=== PATIENT | female | born 2000 | race Caucasian/White ===

== ENCOUNTER 2020-12-08 19:39 | Emergency (ER) | payer OTHER ==
[2020-12-08 20:29] LABS: BASOPHIL 0.1 % (0-2); EOSINOPHIL 0 % (0-5); HGB 12.6 g/dl (12.5-16.0); MCH 28.6 pg (25.0-31.0); MCHC 34.1 g/dL (32.0-36.0); MCV 84.1 fL (78.0-100.0); MONOCYTE 13.2 % (0-12); MPV 9.7 fL (6.0-9.5); NEUTROPHIL 76.3 % (41-80); NRBC 0; PLT 230 K/uL (150-400); RDW 12.9 % (11.5-14.0)
[2020-12-08 20:31] LABS: WBC 12.3 K/uL (4.0-10.5)
[2020-12-08 20:35] LABS: ALBUMIN 4.3 g/dL (3.4-5.0); BILIRUBIN - TOTAL 1.6 mg/dL (0.2-1.0); BUN/CREAT RATIO (CALC) 11.4 RATIO; CREATININE 0.79 mg/dL (0.51-0.95); GLOBULIN (CALCULATION) 3.2 g/dL; POTASSIUM 3.3 mmol/L (3.5-5.1); TOTAL PROTEIN 7.5 g/dL (6.4-8.2)
[2020-12-08 20:47] LABS: LACTIC ACID 0.9 mmol/L (0.4-1.9)
[2020-12-08 21:37] LABS: BILIRUBIN NEGATIVE (NEGATIVE); BLOOD 1+ Ery/uL (NEGATIVE); CLARITY HAZY (CLEAR); COLOR YELLOW (YELLOW); GLUCOSE (U) NORMAL (NORMAL); LEUKOCYTES 3+ Leu/uL (NEGATIVE); NITRITE NEGATIVE (NEGATIVE); PROTEIN 1+ mg/dL (NEGATIVE)
[2020-12-08 21:50] LABS: URINARY WBC TNTC
[2020-12-08 21:51] LABS: BACTERIA 3+
[2020-12-08] MEDS ORDERED: ZOFRAN4 M1 PO (23:18)
[2020-12-08] MEDS ORDERED: BACTRIM DS TAB1 EACH PO (23:37)
== END 2020-12-08 23:49 | disposition home or self-care (01) ==
LOC: FER 19:39
PROVIDERS: Emergency Medicine
DX: R00.0 Tachycardia, unspecified (principal); N39.0 Urinary tract infection, site not specified; Z20.822 Contact with and (suspected) exposure to COVID-19
CPT/HCPCS: 36415; 71045; 71275; 80053; 81001; 83605; 84484; 85025; 85379; 87040; 87076; 87088; 87186; 93005; J2405; J7030; Q9967; U0002